=== PATIENT | female | born 1980 | race Caucasian/White ===

== ENCOUNTER 2022-01-22 07:19 | Day surgery (SDC) | payer BC ==
[2022-01-20 15:43] VITALS: BMI 22.9
[~2022-01-22 07:19] MED LIST: LACTATED RINGERS 1,000 ML IV SCH
[2022-01-22 07:43] VITALS: TEMP 97.4
[2022-01-22] MEDS ORDERED: LIDOCAINE 2% INJ 20 MG/ML (2 ML VIAL) ONE (08:20)
[2022-01-22] MEDS ORDERED: PROPOFOL 10 MG/ML 20 ML VIAL IV ONE (08:20)
--- NOTE | 2022-01-22 09:03 | P.PCN ---
Date of Procedure: 01/22/22 Procedure(s) Performed: Brief history: Patient is a pleasant 41-year-old white female scheduled for an elective upper endoscopy as well as colonoscopy as a part of evaluation of abdominal bloating and diffuse abdominal pain for the last several months duration. Procedure performed: Esophagogastroduodenoscopy with biopsy Colonoscopy Preoperative diagnosis: Abdominal pain and diffuse abdominal bloating of several months duration Anesthesia: MAC Procedure: After informed consent was obtained from the patient was brought into the endoscopy unit and IV sedation was administered by anesthesia under continuous monitoring. Initially upper endoscopy was done. The Olympus GF 160 video endoscope was inserted inserted into the mouth and esophagus intubated without any difficulty and was gradually advanced into the stomach and duodenum and carefully examined. The bulb and second part of the duodenum appeared normal. Biopsies were done from the duodenum to rule out celiac disease. The scope was then withdrawn into the stomach adequately insufflated with air and upon careful examination the antrum had mild gastritis and biopsies were done from this area. The body, cardia and fundus appeared normal. The scope was then withdrawn into the esophagus. The GE junction was located at 40 cm to the incisors. It appeared regular with no erythema erosions or ulcerations. Rest of the esophagus appeared normal. Patient tolerated the procedure well. At this time the patient continued to remain sedation. Initial digital rectal examination was normal. Olympus CF 160 video colonoscope was then inserted into the rectum and gradually advanced to the cecum without any difficulty. Careful examination was performed as the scope was gradually being withdrawn. The prep was excellent. Terminal ileum was intubated and 20 cm visualized and appeared normal. The cecum, ascending colon, transverse colon, descending colon, sigmoid colon and rectum appeared normal. Retroflexion was performed in the rectum and no lesions were noted. Patient tolerated the procedure well. Impression: 1. Upper endoscopy revealed mild antral gastritis but no evidence of esophagitis or peptic ulcer disease 2. Colonoscopy was within normal limits with no evidence of colitis or colorectal neoplasia Recommendations: Findings of this examination were discussed with the patient as well as her family. She was advised to follow with the biopsy results. Recommend repeat screening colonoscopy in 10 years.
[2022-01-22 09:08] VITALS: RESP 16
[2022-01-22 09:22] VITALS: BP 107/71; PULSE 81
== END 2022-01-22 09:48 | disposition home or self-care (01) ==
LOC: ORWHC2ENDO 07:19
PROVIDERS: ATTEND Internal Medicine Gastroenterology
DX: K29.70 Gastritis, unspecified, without bleeding (principal); E07.9 Disorder of thyroid, unspecified
CPT/HCPCS: 81025; 88305; 45378; 43239; J2704; J2001